=== PATIENT | male | born 1960 | race Hispanic/Latino ===

== ENCOUNTER 2024-10-30 05:36 | Day surgery (SDC) | payer MEDICAID ==
[2024-10-26 10:09] LABS: BASOPHILS # (AUTO) 0.03 K/uL (0.00-0.20); BASOPHILS % (AUTO) 0.5 % (0.0-5.0); EOSINOPHILS # (AUTO) 0.16 K/uL (0.00-0.70); EOSINOPHILS % (AUTO) 2.6 % (0.0-8.0); HEMATOCRIT 33.8 % (42-54); IMMATURE GRANULOCYTE ABSOLUTE 0.02 K/uL (0-1); LYMPHOCYTES # (AUTO) 1.6 K/uL (1.0-4.8); LYMPHOCYTES % (AUTO) 24.8 % (21.0-51.0); MEAN CORPUSCULAR HEMOGLOBIN 29.8 pg (27.0-33.0); MEAN CORPUSCULAR HGB CONC 33.7 g/dL (32.0-36.0); MEAN CORPUSCULAR VOLUME 88.5 fL (79-99); MONOCYTES # (AUTO) 0.5 K/uL (0.1-1.0); MONOCYTES % (AUTO) 7.8 % (3.0-13.0); PLATELET COUNT (AUTO) 161 K/uL (130-400); RED BLOOD CELL COUNT(AUTO) 3.82 MIL/uL (4.50-6.20); RED CELL DISTRIBUTION WIDTH 13.4 % (11.0-15.5); WHITE BLOOD COUNT (AUTO) 6.3 K/uL (4.8-10.8)
[2024-10-26 10:15] VITALS: BP 142/77; PULSE 80; RESP 17; TEMP 97.6
[2024-10-26 10:16] LABS: POTASSIUM 4.3 mmol/L (3.5-5.1)
[2024-10-26 10:19] LABS: INR 1.33 (0.85-1.15); PROTHROMBIN TIME 13.7 SEC (9.6-11.6)
--- NOTE | 2024-10-26 15:18 | EKG ---
[facility] Test Date: 2024-10-26 Test Time: 09:57:31 Pat Name: MARCUS HAM Department: [facility] Room: [facility] Gender: M Director Of Regulatory Affairs: [id number] : 1960 Requested By: ZENOBIA BANGURA Order Number: [id number] Reading MD: Sekou Lopez Measurements Intervals [place] Rate: 89 P: 0 KS: 0 QRS: 41 QRSD: 92 T: 6 QT: 389 QTc: 473 Interpretive Statements Atrial flutter Compared to ECG 08/23/2024 11:55:08 Sinus rhythm no longer present Electronically Signed On 10-31-2024 07:15:06 CDT by Sekou Lopez Please click the below link to view image of tracing.
[2024-10-30] VITALS (34 sets, daily range): BP systolic 97–154; BP diastolic 61–89; PULSE 72–94; RESP 11–16; TEMP 97–97.7
[~2024-10-30] VITALS: Ht 175.3 cm; Wt 130.3 kg
[~2024-10-30 05:36] MED LIST: AMIO200T68 PO; CETI10TA57 PO; CHOL12502 PO; CILO50TA2 PO; GABA300C PO; GLIM4TAB36 PO; LOSA25TA41 PO; LOVA20TA3 PO; METF-527 PO; METO-408 PO; MONT-39 PO; RIVA20TA PO; TAMS-55 PO
[2024-10-30] MEDS ORDERED: LIDOCAINE HCL 400MG/20ML VIAL ONE ×2 (07:24→08:37)
[2024-10-30] MEDS ORDERED: HEParin-NS 1,000 UNIT/500 ML 500 ML IV ONE ×3 (07:24→09:36)
[2024-10-30] MEDS ORDERED: HEParin 10,000 UNIT/10ML (1,000 UNIT/ML) VIAL ONE ×2 (07:24→09:37)
[2024-10-30] MEDS ORDERED: SODIUM BICARB 50MEQ 50ML VIAL 50 ML ONE (07:24)
[2024-10-30] MEDS: 0.9%NACL 1000ML 1,000 ML IV SCH (07:31)
[2024-10-30] MEDS ORDERED: FENTanyl CITRate PF 50 MCG/1 ML 2ML VIAL ONE ×3 (07:51→10:58)
[2024-10-30] MEDS ORDERED: MIDAZOLAM HCL 1 MG/ML 2ML VIAL ONE ×2 (07:51→08:14)
[2024-10-30] MEDS ORDERED: ondanSETRON 4MG INJ ONE (08:14)
[2024-10-30] MEDS ORDERED: proPOFol 10 MG/ML 20ML VIAL IV ONE (08:15)
[2024-10-30] MEDS ORDERED: rocuRONium bROMide 10MG/1ML 5ML VL ONE (08:15)
[2024-10-30] MEDS ORDERED: phenylEPHRINE HCL 10 MG/ML 1ML VIAL IV ONE (08:41)
[2024-10-30] MEDS ORDERED: ePHEDrine SULFate 50 MG/ML AMPULE ONE (08:56)
[2024-10-30] MEDS ORDERED: GLYCOPYRROLATE 0.2 MG/ML 5 ML VIAL ONE (10:58)
[2024-10-30] MEDS ORDERED: NEOSTIGMINE METHYLSULFATE 1MG/ML IV ONE (10:59)
--- NOTE | 2024-10-30 13:40 | NUR ---
WENT IN TO ASSESS PT NOTED GAUZE TO RIGHT GROIN SOAKED IN BLOOD. DRESSING REMOVED AREA CLEANED WITH GAUZE AND D-STAT WAS APPLIED AT 1343 HELD MANUAL PRESSURE X 15 MINUTES. SITE APPEARED ASYMPTOMATIC AFTER MANUAL PRESSURE HELD.
--- NOTE | 2024-10-30 14:10 | NUR ---
WENT BACK INTO ROOM TO ASSESS RIGHT FEMORAL SITE NOTED BLOOD OOZING TO RIGHT FEMORAL SITE. I HELD MANUAL PRESSURE WITH A D-STAT FOR ABOUT 15 MINUTES PT CONTINUED TO OOZE. NEW D-STAT WAS APPLIED HOLDING MANUAL PRESSURE AGAIN FOR ABOUT 15 MINUTES WITH NO SUCCESS IN STOPPING THE OOZING OF BLOOD. I THEN CALLED FOR ASSISTANCE FROM A SECOND RN WHOM CAME IN AND HELD MANUAL PRESSURE WITH A D-STAT WHICH DID APPEAR TO CONTROL THE OOZING. PENDING EXPLOSIVES TRUCK DRIVER TO ARRIVE TO APPLY A PRESSURE DRESSING.
--- NOTE | 2024-10-30 15:10 | NUR ---
DR. BANGURA ARRIVED AT BEDSIDE AND WAS TOLD ABOUT PT CONTINUING TO BLEED. HE CALLED SCR[employer] GATH[employer]ER STAFF TO COME ASSIST AND APPLY PRESSURE DRESISNG.
--- NOTE | 2024-10-30 15:30 | NUR ---
PRESSURE DRESSING APPLIED BY [employer]IST TEAM. VSS NAD NO BLEEDING/OOZING NOTED TO RIGHT FEMORAL SITE PRIOR TO APPLYING PRESSURE DRESSING.
--- NOTE | 2024-10-30 16:30 | NUR ---
md dr lozada here talking to pt received report from rusty salcedo rn
[2024-10-30] MEDS: APIXaban 5 MG TABLET PO ONE (16:33)
[2024-10-30] MEDS ORDERED: APIXaban 5 MG TABLET PO ONE (17:00)
--- NOTE | 2024-10-30 17:00 | NUR ---
f/u dr lozada in to see pt. ordered for pt to stay another hour and if site free from bleeding he can go home if not he will need a room for observation. will continue to monitor pt
--- NOTE | 2024-10-30 19:45 | NUR ---
d/c pt taken out via w/c by rachael block rn. pt in no distress. rt groin free from bleeding or hematoma. spouse at side
--- NOTE | 2024-10-31 06:49 | EKG ---
[facility] Test Date: 2024-10-30 Test Time: 18:40:49 Pat Name: MARCUS HAM Department: [facility] Room: Gender: M Chief Recordist: [id number] : 1960 Requested By: ZENOBIA BANGURA Order Number: [id number] Reading MD: Sekou Lopez Measurements Intervals [place] Rate: 91 P: 37 SD: 158 QRS: 34 QRSD: 90 T: 5 QT: 400 QTc: 492 Interpretive Statements Normal sinus rhythm Prolonged QT Compared to ECG 10/26/2024 09:57:31 Prolonged QT interval now present Atrial flutter no longer present Electronically Signed On 10-31-2024 06:54:26 CDT by Sekou Lopez Please click the below link to view image of tracing.
== END 2024-10-30 19:45 | disposition home or self-care (01) ==
LOC: DAH 05:36
PROVIDERS: ATTEND Internal Medicine Cardiovascular Disease
DX: I48.3 Typical atrial flutter (principal); I10 Essential (primary) hypertension; I48.0 Paroxysmal atrial fibrillation; E11.9 Type 2 diabetes mellitus without complications; E78.5 Hyperlipidemia, unspecified; N40.0 Benign prostatic hyperplasia without lower urinary tract symptoms; G47.33 Obstructive sleep apnea (adult) (pediatric); Z79.899 Other long term (current) drug therapy; Z79.84 Long term (current) use of oral hypoglycemic drugs; Z99.89 Dependence on other enabling machines and devices; Z79.01 Long term (current) use of anticoagulants
CPT/HCPCS: 80048; 85025; 85610; 85730; 36415 ×2; 93005 ×2; 93653; 93655; 85347 ×2; 82948 ×2; C1894 ×2; C1732 ×3; A4649 ×2; C1760 ×2; J3010 ×2; J3490 ×6; J7030; J1644 ×5; J2250; J2704; J2405; J2710; J2371; A4215; A6402 ×2; A4222; A4221; A4663; A4216; A4606; A4554; A4223 ×2